=== PATIENT | male | born 1975 | race Caucasian/White ===

== ENCOUNTER 2017-06-11 08:59 | Emergency (ER) | payer SELFPAY ==
[~2017-06-11] VITALS: Ht 182.9 cm; Wt 86.2 kg
[~2017-06-11 08:59] MED LIST: ATIVAN1 MG PO
--- OUTSIDE RECORDS SUMMARY | 2017-06-11 09:01 | XMS REPORT ---
Author Author [facility] Address Unknown Phone Unavailable Care Team Providers Care Financial Planning Adviser Name Role Phone Unavailable Unavailable Problems This patient has no known problems. Allergies, Adverse Reactions, Alerts This patient has no known allergies or adverse reactions. Medications This patient has no known medications. Encounters Start Date/Time End Date/Time Encounter Type Admission Type Attending [facility] Care Department Encounter ID 2016-12-18 06:58:00 2016-12-18 06:58:00 Emergency [facility] [id number] 2016-10-30 16:42:00 2016-10-30 16:42:00 Emergency [facility] [id number]
== END 2017-06-11 09:40 | disposition left against medical advice (07) ==
LOC: ER 08:59
DX: F41.9 Anxiety disorder, unspecified (principal)